=== PATIENT | female | born 1970 ===

== ENCOUNTER 2020-11-27 12:00 | Inpatient (IN) | payer OTHER ==
[~2020-11-27] VITALS: Ht 157.5 cm; Wt 48.5 kg
[2020-11-27] MEDS ORDERED: ANAST PO (13:42)
[2020-12-01] MEDS ORDERED: ANASTROZOLE1 MG (08:12)
[2020-12-02] MEDS ORDERED: HYOSCYAMINE0.125 M1 SL (11:58)
[2020-12-02] MEDS ORDERED: ULTRACET PO (11:59)
== END 2020-12-02 12:49 | disposition home or self-care (01) | DRG 331 ==
LOC: O/R 11-30 07:34 → SURH 11-30 07:34
PROVIDERS: ADMIT Surgery; ATTEND Surgery
PROC: 07BC3ZX Excision of Pelvis Lymphatic, Percutaneous Approach, Diagnostic (ICD-10-PCS; 2020-11-30)
PROC: 3E0F7SF Introduction of Other Gas into Respiratory Tract, Via Natural or Artificial Opening (ICD-10-PCS; 2020-11-30)
PROC: 0DTN4ZZ Resection of Sigmoid Colon, Percutaneous Endoscopic Approach (ICD-10-PCS; principal; 2020-11-30 16:45)
DX: C18.7 Malignant neoplasm of sigmoid colon (principal)